=== PATIENT | female | born 1950 | race Caucasian/White ===

== ENCOUNTER 2017-01-11 10:02 | Emergency (ER) | payer MEDICARE, BC ==
[2017-01-11 10:31] VITALS: BP 125/83
--- NOTE | 2017-01-11 11:24 | UC ---
Throat Pain/Nasal Pablo HPI - HPI Summary HPI Summary: aaliyah had strep throat last week now patient has cough and sore throat patient is concerned as she is seeing her elder mother this week end and does not want her exposed to strep - History of Current Complaint Chief Complaint: UCRespiratory Stated Complaint: SORE THROAT Time Seen by Provider: 01/11/17 10:40 Hx Obtained From: Patient ?: No Onset/Duration: Sudden Onset, Lasting Days - 2, Still Present Severity: Moderate Cough: Nonproductive Associated Signs & Symptoms: Positive: Hoarseness - Allergies/Home Medications Allergies/Adverse Reactions: Allergies Allergy/AdvReac Type Severity Reaction Status Date / Time No Known Allergies Allergy Verified 05/10/13 18:40 Home Medications: Home Medications [id number] [Nyquil Severe Cold/Flu 5-6.25-10-325 mg/15Ml] 1 liq PO ONCE 01/11/17 [History Confirmed 01/11/17] PMH/Surg Hx/FS Hx/Imm Hx Previously Healthy: No Cancer History: Breast Cancer - Surgical History Surgical History: Yes Surgery Procedure, Year, and Place: RIGHT BREAST MASTECTOMY 1997, HYSTERECTOMY - Family History Known Family History: Positive: None Family History: no reported cardio vascular issues in family lineage - Social History Occupation: Retired Lives: With Family Alcohol Use: Occasionally Substance Use Type: None Smoking Status (MU): Former Smoker When Did the Patient Quit Smoking/Using Tobacco: 1997 Review of Systems Constitutional: Negative Skin: Negative Eyes: Negative ENT: Sore Throat Respiratory: Cough Cardiovascular: Negative Gastrointestinal: Negative Genitourinary: Negative Motor: Negative Neurovascular: Negative Musculoskeletal: Negative Neurological: Negative Psychological: Negative All Other Systems Reviewed And Are Negative: Yes Physical Exam Triage Information Reviewed: Yes Appearance: Well-Appearing, No Pain Distress, Well-Nourished Vital Signs: Initial Vital Signs Temp 100.2 F 01/11/17 10:27 Pulse 92 01/11/17 10:27 Resp 16 01/11/17 10:27 BP 125/83 01/11/17 10:27 Pulse Ox 99 01/11/17 10:27 Vital Signs Reviewed: Yes Eye Exam: Normal Eyes: Positive: Conjunctiva Clear ENT Exam: Normal ENT: Positive: Normal ENT inspection, Hearing grossly normal, Pharynx normal, TMs normal. Negative: Nasal congestion, Nasal drainage, Trismus, Muffled/ hoarse voice Dental Exam: Normal Neck exam: Normal Neck: Positive: Supple, Nontender, No Lymphadenopathy Respiratory Exam: Normal Respiratory: Positive: Chest non-tender, Lungs clear, Normal breath sounds, No respiratory distress, No accessory muscle use Cardiovascular Exam: Normal Cardiovascular: Positive: RRR, No Murmur, Pulses Normal, Brisk Capillary Refill Musculoskeletal Exam: Normal Musculoskeletal: Positive: Strength Intact, ROM Intact, No Edema Neurological Exam: Normal Neurological: Positive: Alert, Muscle Tone Normal Psychological Exam: Normal Skin Exam: Normal Diagnostics - Laboratory Diagnostic Studies Completed/Ordered: rst (-) Throat Pain/Nasal Course/Dx - Course Assessment/Plan: rest increase fluids, follow with pcp - Differential Dx/Diagnosis Differential Diagnosis/HQI/PQRI: Influenza, Laryngitis, Otitis Media, Pharyngitis, Sinusitis, URI Provider Diagnoses: URI Discharge - Discharge Plan Condition: Stable Disposition: HOME Patient Education Materials: Upper Respiratory Infection (ED), Viral Syndrome ( ED) Referrals: Daniella Dennison MD [Primary Care Provider] - If Needed
== END 2017-01-11 11:37 | disposition home or self-care (01) ==
LOC: UCEAST 10:02
DX: J06.9 Acute upper respiratory infection, unspecified (principal); Z20.818 Contact with and (suspected) exposure to other bacterial communicable diseases; Z87.891 Personal history of nicotine dependence
CPT/HCPCS: 87651; 99211; G0463

== ENCOUNTER 2017-01-16 20:25 | Emergency (ER) | payer MEDICARE, BC ==
[2017-01-16 20:31] VITALS: BP 142/80
--- NOTE | 2017-01-16 20:40 | UC ---
Ear Complaint HPI - HPI Summary HPI Summary: 66 year old female presents with complains of left ear drainage, cough and sinus congestion. - History of Current Complaint Chief Complaint: UCRespiratory Stated Complaint: EAR DRAINING,COUGH Time Seen by Provider: 01/16/17 20:37 - Allergies/Home Medications Allergies/Adverse Reactions: Allergies Allergy/AdvReac Type Severity Reaction Status Date / Time No Known Allergies Allergy Verified 01/16/17 20:31 PMH/Surg Hx/FS Hx/Imm Hx - Surgical History Surgical History: Yes Surgery Procedure, Year, and Place: RIGHT BREAST MASTECTOMY 1997, HYSTERECTOMY - Family History Known Family History: Positive: None Family History: no reported cardio vascular issues in family lineage - Social History Alcohol Use: Occasionally Substance Use Type: None Smoking Status (MU): Former Smoker When Did the Patient Quit Smoking/Using Tobacco: 1997 Review of Systems Constitutional: Negative Skin: Negative Eyes: Negative ENT: Sore Throat, Ear Ache, Nasal Discharge, Sinus Congestion, Sinus Pain/ Tenderness Respiratory: Negative Cardiovascular: Negative Gastrointestinal: Negative Genitourinary: Negative Motor: Negative Neurovascular: Negative Musculoskeletal: Negative Neurological: Negative Psychological: Negative All Other Systems Reviewed And Are Negative: Yes Physical Exam Triage Information Reviewed: Yes Vital Signs: Initial Vital Signs Temp 37.6 C 01/16/17 20:26 Pulse 98 01/16/17 20:26 Resp 20 01/16/17 20:26 BP 142/80 01/16/17 20:26 Pulse Ox 98 01/16/17 20:26 Eye Exam: Normal ENT: Positive: Pharyngeal erythema, Nasal drainage, Other: - LEFT EAR DRAINAGE Dental Exam: Normal Neck exam: Normal Neck: Positive: 1 Respiratory Exam: Normal Cardiovascular Exam: Normal Abdominal Exam: Normal Musculoskeletal Exam: Normal Neurological Exam: Normal Psychological Exam: Normal Skin Exam: Normal Ear Complaint Course/Dx - Differential Dx/Diagnosis Provider Diagnoses: LEFT SEROUS AOM. SINUSITIS Discharge - Discharge Plan Condition: Stable Disposition: HOME Prescriptions: Amoxicillin PO (*) [Amoxicillin 875 MG (*)] 875 mg PO BID #20 tab LoraTADine TAB(NF) [Claritin 10 MG TAB(NF)] 10 mg PO DAILY #30 tab Neomyc/Polym/HC 1% OTIC SUSP* [Cortisporin Otic Susp 1%*] 4 drop LEFT EAR TID # 1 btl guaiFENesin/CODIEN 100MG-10MG* [Robitussin AC 100Mg-10Mg*] 5 ml PO Q6H PRN #120 udc MDD 20 ML PRN Reason: Cough Patient Education Materials: Sinusitis (ED), Earache (ED) Referrals: Daniella Dennison MD [Primary Care Provider] - If Needed
[2017-01-16] MEDS ORDERED: LoraTADine TAB(NF) 10 MG TAB (AUTOSUB to CETIRIZINE) PO ONE (20:57)
[2017-01-16] MEDS ORDERED: Amoxicillin PO (*) 875 MG TAB PO SCH (21:00)
[2017-01-16] MEDS ORDERED: Amoxicillin PO (*) 500 MG CAP PO ONE (21:05)
[2017-01-16] MEDS ORDERED: Amoxicillin PO (*) 500 MG CAP ONE (21:08)
== END 2017-01-16 21:11 | disposition home or self-care (01) ==
LOC: UCEAST 20:25
DX: H65.02 Acute serous otitis media, left ear (principal); J32.9 Chronic sinusitis, unspecified; Z87.891 Personal history of nicotine dependence
CPT/HCPCS: 69000; 99212; A9270-GY; G0463

== ENCOUNTER 2018-08-25 10:42 | Emergency (ER) | payer MEDICARE, OTHER ==
--- NOTE | 2018-08-25 10:46 | UC ---
Ear Complaint HPI - HPI Summary HPI Summary: 67 yo female presents with b/l ear pain (left > right) for the last 2 weeks. Has some decreased hearing and popping in her left ear. Pain worsened in the left ear over the last 2 days. She has also had some sinus congestion. Has been taking mucinex for the last week with mild relief at first. Denies fever, chills , sore throat, cough, SOB, chest pain. - History of Current Complaint Stated Complaint: EAR PAIN Time Seen by Provider: 08/25/18 10:45 Hx Obtained From: Patient Onset/Duration: Gradual Onset Severity Initially: Mild Severity Currently: Moderate Pain Intensity: 5 Pain Scale Used: 0-10 Numeric - Allergies/Home Medications Allergies/Adverse Reactions: Allergies Allergy/AdvReac Type Severity Reaction Status Date / Time No Known Allergies Allergy Verified 08/25/18 10:55 PMH/Surg Hx/FS Hx/Imm Hx - Additional Past Medical History Additional PMH: BRCA - Surgical History Surgical History: Yes Surgery Procedure, Year, and Place: RIGHT BREAST MASTECTOMY 1997, HYSTERECTOMY - Family History Known Family History: Positive: None - Social History Occupation: Retired Lives: With Family Alcohol Use: Occasionally Substance Use Type: None Smoking Status (MU): Former Smoker When Did the Patient Quit Smoking/Using Tobacco: 1997 Review of Systems All Other Systems Reviewed And Are Negative: Yes Constitutional: Positive: Negative Skin: Positive: Negative Eyes: Positive: Negative ENT: Positive: Ear Ache, Nasal Discharge Respiratory: Positive: Cough Cardiovascular: Positive: Negative Gastrointestinal: Positive: Negative Neurological: Positive: Negative Psychological: Positive: Negative Physical Exam - Summary Physical Exam Summary: GENERAL: NAD. WDWN. No pain distress. SKIN: No rashes, sores, lesions, or open wounds. HEENT: Head: AT/NC Eyes: EOM intact. Conjunctiva clear without inflammation or discharge. Ears: Hearing grossly normal. RIGHT TM with mild erythema and bulging. Clear fluid behind TM. LEFT TM occluded by brown cerumen. s/p irrigation; TM with mild erythema and clear fluid behind TM. No canal edema or drainage. Nose: Nasal mucosa pink and moist. NTTP maxillary and frontal sinus. Throat: Posterior oropharynx without exudates, erythema, or tonsillar enlargement. Uvula midline. NECK: Supple. Nontender. No lymphadenopathy. CHEST: CTAB. No r/r/w. No accessory muscle use. Breathing comfortably and in no distress. CV: RRR. Without m/r/g. Pulses intact. NEURO: Alert. PSYCH: Age appropriate behavior. Triage Information Reviewed: Yes Vital Signs: Vital Signs: Temp Pulse Resp BP Pulse Ox 97.4 F 90 18 133/87 97 08/25/18 10:53 08/25/18 10:53 08/25/18 10:53 08/25/18 10:53 08/25/18 10:53 Vital Signs Reviewed: Yes Ear Complaint Course/Dx - Course Course Of Treatment: Serous otitis media with mild infection. Left cerumen impaction that resolved s/p irrigation and pt felt improved. - Differential Dx/Diagnosis Provider Diagnosis: Otitis media, Cerumen impaction Discharge - Sign-Out/Discharge Documenting (check all that apply): Patient Departure All imaging exams completed and their final reports reviewed: No Studies - Discharge Plan Condition: Stable Disposition: HOME Prescriptions: Amoxicillin PO (*) [Amoxicillin 875 MG (*)] 875 mg PO BID #14 tab Fluticasone NASAL SPRAY 50MCG* [Flonase NASAL SPRAY 50MCG*] 1 spray BOTH NARES DAILY #1 btl LoraTADine TAB(NF) [Claritin 10 MG TAB(NF)] 10 mg PO DAILY #14 tab Patient Education Materials: Ear Infection (ED), Serous Otitis Media (ED) Referrals: Daniella Dennison MD [Primary Care Provider] - Additional Instructions: If you develop a fever, shortness of breath, chest pain, new or worsening symptoms - please call your PCP or go to the ED. - Billing Disposition and Condition Condition: STABLE Disposition: Home
--- OUTSIDE RECORDS SUMMARY | 2018-08-25 10:47 | XMS REPORT | Continuity of Care Document ---
:1950 External Reference #:[id number] Author Name Aga Medina O.D. Address [address] [facility] [place] [address] Care Team Providers Name Role Phone Daniella Dennison M.D. Primary Care Physician Unavailable Payers Date Identification Numbers Payment Provider Subscriber Policy Number: [id number] Medicare - [facility] Rae Hsu PayID: [id number] [address] [place] [address] Policy Number: [id number] [employer] Rae Hsu PayID: [id number] [address] [place] [address] Advance Directives Description No Information Available Problems Date Description Provider Status Onset: Carcinoma of breast Active Note: 1997 Onset: 07/26/2018 Presence of intraocular lens Aga Medina O.D. Active Onset: 07/26/2018 Epiretinal membrane Aga Medina O.D. 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 ETOH Use Denies alcohol use Tobacco Use Start: Unknown Patient has never smoked Recreational Drug Use Denies Drug Use Smoking Status Reviewed: 07/26/18 Patient has never smoked Allergies, Adverse Reactions, Alerts Description No Known Drug Allergies Medications Medication Date Status Form Strength Qnty SIG Indications Ordering Provider Vitamin D Active Tablets 1000Unit every day Unknown 0 Calcium 600 Active Tablets 600mg Unknown 0 Immunizations Description No Information Available Vital Signs Description No Information Available Results Description No Information Available Procedures Date Code Description Status 08/28/2014 65872 Determination Of Refractive State Completed 08/28/2014 93067 Est Patient Comprehensive Exam Completed 10/08/2012 64162 Scanning Computerized Opthalmic Diagnostic Posterior Seg Completed Retina 09/06/2011 85212 Extracapsular Cataract Extraction W/Intraocular Lens Completed 08/30/2011 87794 Extracapsular Cataract Extraction W/Intraocular Lens Completed 08/25/2011 20600 Computerized Corneal Topography Completed 08/25/2011 94633 Scanning Computerized Opthalmic Diagnostic Posterior Seg Completed Retina 08/25/2011 69276 Ophthalmic Biometry Completed 08/25/2011 29215 Ophthalmic Biometry Completed 08/01/2011 21327 Est Patient Comprehensive Exam Completed 09/10/2009 40638 Determination Of Refractive State Completed 09/10/2009 30877 Est Patient Comprehensive Exam Completed 01/21/2008 57068 Determination Of Refractive State Completed 01/21/2008 81778 Est Patient Comprehensive Exam Completed 02/16/2006 31489 Determination Of Refractive State Completed 02/16/2006 35035 Est Patient Comprehensive Exam Completed 11/17/2005 67404 Est Patient Intermediate Exam Completed Encounters Type Date Location Provider Dx Diagnosis Office Visit 08/25/2011 Crispin Keita, 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 Cause Due To Spec Agents Other Office Visit 12/01/2005 3:20p Crispin Hassan 692.9 Dermatitis Unspec MD Larry, flores Medina O.D. Cause Due To Spec Agents Other Plan of Treatment 07/26/2018 - Aga Medina O.D.H35.373 Puckering of macula, bilateralComments:A Macular Pucker is a wrinkling of the retina tissue. It can cause distortion in your vision. Pleasecall the office if you notice a decrease or new distortion in your vision before then.Follow up:1 Year Follow Up NO OCT UNLESS VISIBLE CHANGES NOTED You can expect to have your eyes dilated at your next visit. If Dr. Medina orders any additional testing, it may require extra time. We recommend that you bring sunglasses, as dilation drops often make you light sensitive until they wear off. We always recommend you bring someone to drive you home if you are uncomfortable driving with your eyes dilated. If you have any questions before your next visit, feel free to call our office at .P96.1 Presence of intraocular lensComments:The artificial lens implants in both eyes appear to be stable at this time. +1.25 READING GLASSESAS NEEDED
[2018-08-25 10:55] VITALS: BP 133/87
== END 2018-08-25 11:15 | disposition home or self-care (01) ==
LOC: UCEAST 10:42
DX: H65.93 Unspecified nonsuppurative otitis media, bilateral (principal); H61.22 Impacted cerumen, left ear; Z87.891 Personal history of nicotine dependence
CPT/HCPCS: 99213; G0463

== ENCOUNTER 2018-12-26 07:24 | Emergency (ER) | payer MEDICARE, OTHER ==
[2018-12-26 07:41] VITALS: BP 126/75
--- NOTE | 2018-12-26 07:54 | UC ---
Pediatric Resp HPI - HPI Summary HPI Summary: Ms. Hsu has had a sore throat for about 4 days. She started to get congested yesterday. She says she had a bad night last night because her throat was so sore. She is not aware of any fevers but she has had chills and muscle aches. - History Of Current Complaint Chief Complaint: UCGeneralIllness Stated Complaint: SORE THROAT Time Seen by Provider: 12/26/18 07:48 Hx Obtained From: Patient Onset/Duration: Gradual Onset Timing: Constant Severity Initially: Mild Severity Currently: Moderate Location: Throat Character: Dry Cough Aggravating Factor(s): Nothing Alleviating Factor(s): Nothing Associated Signs And Symptoms: Nasal Congestion, Sore Throat - Allergies/Home Medications Allergies/Adverse Reactions: Allergies Allergy/AdvReac Type Severity Reaction Status Date / Time No Known Allergies Allergy Verified 12/26/18 07:35 Past Medical History Respiratory History: No: Hx Asthma - Family History Family History: no reported cardio vascular issues in family lineage Review Of Systems All Other Systems Reviewed And Are Negative: Yes Constitutional: Positive: Chills Eyes: Positive: Negative ENT: Positive: Throat Pain Respiratory: Positive: Cough Physical Exam - Summary Physical Exam Summary: She is nontoxic in appearance with stable vitals. Triage Information Reviewed: Yes Vital Signs: Initial Vital Signs Temp 97.7 F 12/26/18 07:36 Pulse 96 12/26/18 07:36 Resp 18 12/26/18 07:36 BP 126/75 12/26/18 07:36 Pulse Ox 98 12/26/18 07:36 Vital Signs Reviewed: Yes Appearance: Well-Appearing Eyes: Positive: Normal ENT: Positive: Pharyngeal erythema, Nasal congestion, TMs normal. Negative: Trismus, Muffled voice Neck: Positive: Supple, Nontender, No Lymphadenopathy Respiratory: Positive: Lungs clear Cardiovascular: Positive: Normal Abdomen Description: Positive: Nontender Skin: Negative: Rashes Pediatric Resp Course/Dx - Course Course Of Treatment: Rapid strep test was negative. This is likely a viral infection and I recommended further symptomatic treatment. - Differential Dx/Diagnosis Provider Diagnosis: URI (upper respiratory infection) Discharge - Sign-Out/Discharge Documenting (check all that apply): Patient Departure All imaging exams completed and their final reports reviewed: No Studies - Discharge Plan Condition: Stable Disposition: HOME Patient Education Materials: Upper Respiratory Infection (ED) Referrals: Daniella Dennison MD [Primary Care Provider] - - Billing Disposition and Condition Condition: STABLE Disposition: Home
== END 2018-12-26 08:35 | disposition home or self-care (01) ==
LOC: UCEAST 07:24
DX: J06.9 Acute upper respiratory infection, unspecified (principal)
CPT/HCPCS: 87651; 99212; G0463

== ENCOUNTER 2018-12-29 09:03 | Emergency (ER) | payer MEDICARE, OTHER ==
[2018-12-29 09:15] VITALS: BP 151/88
[2018-12-29] MEDS ORDERED: Fluorescein Sodium TOPICAL* 1 MG TEST STRIP OPHTHALMIC ONE (09:16)
[2018-12-29] MEDS ORDERED: Tetracaine 0.5% OPTH.SOL 4 ML* 1 DROP BTL BOTH EYES ONE (09:16)
--- NOTE | 2018-12-29 09:29 | UC ---
Eye Complaint HPI - HPI Summary HPI Summary: Ms. Hsu is just getting over an upper respiratory tract infection. Starting yesterday her left eye became red and irritated. This morning it was matted shut. She can see fine out of it. - History of Current Complaint Chief Complaint: UCEye Stated Complaint: EYE ISSUE Time Seen by Provider: 12/29/18 09:12 Hx Obtained From: Patient Onset/Duration: Gradual Onset, Lasting Days Timing: Constant Severity Initially: Mild Severity Currently: Mild Pain Intensity: 0 Location of Injury: Conjunctiva Character: Foreign Body Sensation Aggravating Factor(s): Nothing Alleviating Factor(s): Nothing Associated Signs And Symptoms: Positive: Drainage (Clear) - Allergies/Home Medications Allergies/Adverse Reactions: Allergies Allergy/AdvReac Type Severity Reaction Status Date / Time No Known Allergies Allergy Verified 12/29/18 09:16 PMH/Surg Hx/FS Hx/Imm Hx Previously Healthy: Yes - Surgical History Surgical History: Yes Surgery Procedure, Year, and Place: RIGHT BREAST MASTECTOMY 1997, HYSTERECTOMY - Family History Known Family History: Positive: None Family History: no reported cardio vascular issues in family lineage - Social History Alcohol Use: Occasionally Substance Use Type: None Smoking Status (MU): Former Smoker When Did the Patient Quit Smoking/Using Tobacco: 1997 Review of Systems All Other Systems Reviewed And Are Negative: Yes Constitutional: Positive: Negative Eyes: Positive: Drainage, Eye Redness ENT: Positive: Nasal Discharge Respiratory: Positive: Cough Physical Exam - Summary Physical Exam Summary: She is nontoxic in appearance with stable vital signs. Triage Information Reviewed: Yes Appearance: Well-Appearing, No Pain Distress Vital Signs: Initial Vital Signs Temp 97.8 F 12/29/18 09:11 Pulse 92 12/29/18 09:11 Resp 20 12/29/18 09:11 BP 151/88 12/29/18 09:11 Pulse Ox 96 12/29/18 09:11 Eyes: Positive: Conjunctiva Inflamed - There is no fluroscein pickup ENT: Positive: Normal ENT inspection Neck exam: Normal Neck: Positive: No Lymphadenopathy Eye Complaint Course/Dx - Course Course Of Treatment: She is just getting over a URI and this is likely a viral conjunctivitis however I will treat her with sulfacetamide drops and referral if needed. - Differential Dx/Diagnosis Provider Diagnosis: Conjunctivitis Discharge - Sign-Out/Discharge Documenting (check all that apply): Patient Departure All imaging exams completed and their final reports reviewed: No Studies - Discharge Plan Condition: Stable Disposition: HOME Patient Education Materials: Conjunctivitis (ED) Referrals: Daniella Dennison MD [Primary Care Provider] - Xavi Kline MD [Medical Doctor] - Additional Instructions: Please follow up with Dr. Kline if worsening or not improving over the next couple of days. - Billing Disposition and Condition Condition: STABLE Disposition: Home
== END 2018-12-29 09:40 | disposition home or self-care (01) ==
LOC: UCEAST 09:03
DX: H10.9 Unspecified conjunctivitis (principal); Z87.891 Personal history of nicotine dependence
CPT/HCPCS: 99212; A9270-GY; G0463

== ENCOUNTER 2023-12-11 13:16 | Observation (INO) ==
[~2023-12-11 13:16] MED LIST: Metoclopramide 5 MG/ML VIAL (10 mg) IV PRN; NS 0.45% 1000 ml BAG 1,000 ML IV SCH; Naloxone 0.4 mg VIAL 0.4 mg/ml 1 ml VIAL IV PRN; Ondansetron 4 mg VIAL 2 MG/ML 2 ml VIAL IV PRN; fentaNYL 100 mcg/2 ml 50 MCG/ML VIAL IV PRN
[2023-12-11] MEDS ORDERED: fentaNYL 100 mcg/2 ml 50 MCG/ML VIAL ONE (14:09)
[2023-12-11] MEDS ORDERED: Rocuronium 50 mg VIAL 10 mg/ml 5 ml VIAL (50 mg) ONE (14:09)
[2023-12-11] MEDS ORDERED: Propofol 10 MG/ML 20 ML BTL ONE (14:09)
[2023-12-11] MEDS ORDERED: Lidocaine 2% PF 5 ML VIAL ONE (14:09)
[2023-12-11 14:12] LABS: Rapid COVID-19 Molecular Undetected (Undetected)
[2023-12-11] MEDS ORDERED: Tranexamic Acid 1 GM/100ML BAG 2,000 MG/200 ML BAG IV ONE (15:01)
[2023-12-11] MEDS ORDERED: ceFAZolin 2 GM PREMIX 2 GM/50 ML BAG ONE (15:01)
[2023-12-11] MEDS ORDERED: Midazolam 2 mg/2 ml VIAL 1 mg/ml 2 ml VIAL (2 mg) ONE (15:52)
[2023-12-11] MEDS ORDERED: ROPIVACAINE 5 MG/ML 30 ML BTL (0.5%) ONE ×2 (15:52→17:37)
[2023-12-11] MEDS ORDERED: Morphine 2 MG/ML SYRINGE IV PRN (17:19)
[2023-12-11] MEDS ORDERED: Ondansetron 4 mg VIAL 2 MG/ML 2 ml VIAL IV PRN (17:19)
[2023-12-11] MEDS ORDERED: Magnesium Hydroxide LIQ 30 ML UDC PO PRN (17:19)
[2023-12-11] MEDS ORDERED: Ondansetron ODT 4 mg TAB 4 MG TAB PO PRN (17:19)
[2023-12-11] MEDS ORDERED: Lactulose 30 ml UDC PO PRN (17:19)
[2023-12-11] MEDS ORDERED: Calcium Carb (TUMS) 500 mg CHEW TAB PO PRN (17:19)
[2023-12-11] MEDS ORDERED: ceFAZolin 2 GM in NS PREMIX 2 GM/100 ML BAG IVPB SCH (18:00)
[2023-12-11] MEDS ORDERED: Ondansetron 4 mg VIAL 2 MG/ML 2 ml VIAL ONE (18:04)
[2023-12-11] MEDS ORDERED: Dexamethasone IV 4 MG/ML VIAL 1 ml VIAL ONE (18:04)
[2023-12-11] MEDS: Lactated Ringers 1000 ml BAG 1,000 ML IV SCH ×2 (22:11→22:51)
[2023-12-11] MEDS: Magnesium Hydroxide LIQ 30 ML UDC PO SCH (22:20)
[2023-12-11] MEDS: Acetaminophen IV 1 GM/100ML 1,000 MG/100 ML BAG IV ONE (22:49)
[2023-12-11] MEDS: Buffered Lidocaine 1% SYRIN 1 ml INTRADERM ONE (22:50)
[2023-12-11] MEDS: Scopolamine 1 mg/72hr PATCH TRANSDERM ONE (22:50)
[2023-12-12] MEDS: ceFAZolin 2 GM PREMIX 2 GM/50 ML BAG IV SCH (01:34)
[2023-12-12 06:27] LABS: Hematocrit 35.9 % (35-45); Hemoglobin 12.2 g/dL (11.5-14.3); Mean Platelet Volume 7.2 fL (7.5-11.2); Platelet Count 222 10^3/uL (150-450)
[2023-12-12 07:07] LABS: Calcium 8.7 mg/dL (8.6-10.3); Creatinine, Serum 0.7 mg/dL (0.51-0.95); Potassium 4.3 mmol/L (3.5-5.0); eGFR CKD-EPI 90.1 (>60)
[2023-12-12] MEDS: Cholecalciferol (VIT D3) 1,000 unit TAB PO SCH (08:36)
[2023-12-12] MEDS: Vitamin THERAPEUTIC TAB PO SCH (08:36)
[2023-12-12 10:14] VITALS: BP 117/74
== END 2023-12-12 12:40 | disposition home or self-care (01) ==
LOC: SSU 13:16 → OR 13:16
PROVIDERS: ADMIT Orthopaedic Surgery Adult Reconstructive Orthopaedic Surgery; ATTEND Orthopaedic Surgery Adult Reconstructive Orthopaedic Surgery